=== PATIENT | male | born 1990 | race Caucasian/White ===

== ENCOUNTER 2020-01-13 10:39 | Outpatient (CLI) | payer OTHER ==
[~2020-01-13] VITALS: Ht 182.9 cm; Wt 71.7 kg
[2020-01-13 10:45] VITALS: BP 101/59
[2020-01-13] MEDS ORDERED: HUMIRA40 MG/0.2 SUBQ (15:53)
--- NOTE | 2020-01-13 19:02 | Consultation ---
DATE OF CONSULTATION: 01/13/2020 CHIEF COMPLAINT: Crohn disease. HISTORY OF PRESENT ILLNESS: The patient is a very pleasant 29-year-old male with diagnosis of Crohn disease since age 14 with past history of one surgery in the [place] area, currently on Humira. [place] and he wants to get a new GI doctor to follow. At this time, the patient seems to be asymptomatic. PAST MEDICAL HISTORY: 1. GERD. 2. Crohn disease. PAST SURGICAL HISTORY: Partial colectomy. MEDICATIONS: Humira. FAMILY HISTORY: Mother had hypertension. Father had hypercholesteremia. SOCIAL HISTORY: The patient drinks alcohol socially. Otherwise, no IV drug abuse. No tobacco abuse. ALLERGIES: No known drug allergies. REVIEW OF SYSTEMS: Review of systems was positive for minimum abdominal pain and diarrhea. PHYSICAL EXAMINATION: VITAL SIGNS: Temperature 98, blood pressure is 101/59, pulse 71, respirations 20. HEENT: Normocephalic and atraumatic. Sclerae anicteric. NECK: Supple. No evidence of obvious lymphadenopathy. CARDIOVASCULAR: Regular rate and rhythm. Plus S1 and S2. LUNGS: Clear to auscultation bilaterally. ABDOMEN: Soft, nontender. There is a scar from prior abdominal surgeries. No rebound. No guarding. No peritoneal sign. EXTREMITIES: No cyanosis, no clubbing, no edema ASSESSMENT AND PLAN: This is a 29-year-old male with Crohn disease. Plan to receive Humira. Check laboratories for today. The patient will need a colonoscopy. The patient was given instruction for colonoscopy and the prep and we will schedule when the authorization is obtained. Kristopher Little M.D. DR: Rissa JOB#: [id number] CC:
== END 2020-01-13 13:36 | disposition home or self-care (01) ==
LOC: PAN 10:39
DX: K50.90 Crohn's disease, unspecified, without complications (principal); K21.9 Gastro-esophageal reflux disease without esophagitis
CPT/HCPCS: G0463

== ENCOUNTER 2020-06-24 13:10 | Outpatient (CLI) | payer OTHER ==
[~2020-06-24 13:10] MED LIST: HUMIRA40 MG/0.2 SUBQ
--- NOTE | 2020-06-24 13:21 | General Progress Note ---
Assessment/Plan Assessment/Plan: CD GERD on Humira s/p colonoscopy with mild sig colitis add Lialda RTC 6 months Subjective ROS Limited/Unobtainable: Yes Allergies: Coded Allergies: No Known Allergies (Unverified , 01/13/20) Objective General Appearance: alert EENT: normal ENT inspection Neck: supple Cardiovascular: normal rate Respiratory/Chest: decreased breath sounds Abdomen: normal bowel sounds, non tender, soft Extremities: non-tender Kristopher Little MD Jun 24, 2020 13:21
== END 2020-06-24 15:10 | disposition home or self-care (01) ==
LOC: PAN 13:10
DX: K21.9 Gastro-esophageal reflux disease without esophagitis (principal); K50.90 Crohn's disease, unspecified, without complications; K52.9 Noninfective gastroenteritis and colitis, unspecified
CPT/HCPCS: 99212